=== PATIENT | male | born 1990 | race Caucasian/White ===

== ENCOUNTER 2020-02-16 10:06 | Outpatient (NON) | payer OTHER, SELFPAY ==
[2020-02-17 06:46] LABS: SARS-CoV-2 RNA PCR Negative
== END 2020-02-16 10:07 ==
PROVIDERS: PCP Family Medicine; Visit Provider Family Medicine
DX: Z20.828 Contact with and (suspected) exposure to other viral communicable diseases (principal)
CPT/HCPCS: 87635; C9803; U0003

== ENCOUNTER 2020-12-11 12:07 | Emergency (ER) | payer OTHER, SELFPAY ==
--- NOTE | ~2020-12-11 | XR_ITS ---
EXAMINATION: XR chest 2V DATE: 12/11/2020 12:50 INDICATION: Cough and fatigue TECHNIQUE: PA and lateral views of the chest were obtained. COMPARISON: Chest radiograph dated 06/08/17 FINDINGS: New patchy airspace opacities in the bilateral lower lung zones consistent with multifocal pneumonia. No pleural effusion or pneumothorax. The cardiomediastinal silhouette is normal. Visualized bones an d soft tissues are unremarkable. IMPRESSION: 1. Multifocal pneumonia in the bilateral lower lung zones. Reviewed, dictated and finalized at location A.
--- NOTE | 2020-12-11 12:27 | ED.URI ---
HPI - URI/Sore Throat General Chief Complaint: Upper Respiratory Infection Stated Complaint: Chills,Fatigue,Cough Time Seen by Provider: 12/11/20 12:27 Source: patient Mode of arrival: ambulatory Limitations: no limitations History of Present Illness HPI Narrative: Adilson Linares is a 29 yo male with no PMH who [facility] with 7 days worth of symptoms of diaphoresis feeling poorly, no energy, sleeping all the time, afebrile, generally ears hurt cough which is dry. Had a Covid test 5 days ago which is negative with and took a taper pack of steroids. Patient looks ill and although is not short of breath, is diaphoretic Related Data Home Medications Medication Instructions Recorded Confirmed azathioprine 50 mg tablet 150 mg PO DAILY tablet 09/21/19 01/23/20 mesalamine 1.2 gram tablet,delayed 4.8 gm PO DAILY 09/21/19 01/23/20 release Allergies Allergy/AdvReac Type Severity Reaction Status Date / Time No Known Allergies Allergy Verified 12/11/20 12:42 Review of Systems Review of Systems: CONSTITUTIONAL: Denies fever, chills, sweats. Fatigue EYES: Denies visual changes, redness, discharge. ENT: Denies rhinorrhea, congestion, sore throat, otalgia. CARDIOVASCULAR: Denies chest pain, palpitations, edema. Shortness of breath RESPIRATORY: Denies dyspnea, wheezing, cough GASTROINTESTINAL: Denies abdominal pain, nausea, vomiting, diarrhea. GENITOURINARY: Denies dysuria, hematuria, abnormal discharge SKIN: Denies rash or itching. NEUROLOGIC: Denies numbness, or focal weakness. PSYCHIATRIC: Denies anxiety or depression. PMFSH Past Medical History Medical History BMI 29.0-29.9,adult Factor V Leiden Major depressive disorder, single episode, unspecified Ulcerative colitis Family History Family History Other Diabetes mellitus Hypertension Social History Social History Smoking status: Never smoker Alcohol intake: current Comments My nurse note he is Exam Narrative: GENERAL: This is a well-nourished, well-developed patient, in moderate distress. Diaphoretic HEAD: normocephalic, atraumatic. EYES:. Sclera clear/white. Vision is grossly intact. EARS: External ears normal, auditory canals bilateral erythema and without drainage, TMs normal without perforation. Hearing grossly intact. NOSE: External nose normal without nasal discharge, nares without redness, some rhinorrhea THROAT: Mucous membranes moist, posterior pharynx erythema NECK: Neck supple, non-tender CARDIOVASCULAR: Tachycardic rate and rhythm without murmurs, gallops, or rubs. RESPIRATORY: Clear to auscultation. Breath sounds equal bilaterally. No wheezes, rales, or rhonchi. GASTROINTESTINAL: Abdomen soft, non-tender, SKIN: warm, intact with no suspicious lesions or rash, good texture and turgor. NEURO: awake, alert, and oriented to person, place and time. There were no obvious focal neurologic abnormalities. Steady gait EXTREMITIES: Normal range of motion. BACK: Nontender without deformity Course Course Emergency Course: Patient swab for flu Covid and strep Strep, flu negative Rapid Covid positive chest Xray was multifocal pneumonia bilateral lungs-no pneumonia, lateral basilar opacities, no pleural effusion Started on steroids 20 mg a day x5 days plus antihistamines plus cough medication plus Zyrtec, Zithromax, albuterol inhaler Patient to push fluids, quarantine, mother is agreed to check up on him Vital Signs Vital signs: Vital Signs Temperature 97.9 F 12/11/20 12:35 Pulse Rate 81 12/11/20 12:35 Respiratory Rate 18 12/11/20 12:35 Blood Pressure 111/77 12/11/20 12:35 Pulse Oximetry 99 12/11/20 12:35 Temperature 98.8 F 12/11/20 12:54 Pulse Rate 74 12/11/20 12:54 Respiratory Rate 20 12/11/20 12:54 Blood Pressure 99/71 L 12/11/20 12:54 Pul
[2020-12-11 12:35] VITALS: BP 111/77; PULSE 81; RESP 18; TEMP 36.6; O2SAT 99
[2020-12-11 12:54] VITALS: BP 99/71; PULSE 74; RESP 20; TEMP 37.1; O2SAT 100
== END 2020-12-11 13:33 | disposition home or self-care (01) ==
PROVIDERS: Emergency Provider Nurse Practitioner; PCP Family Medicine
DX: U07.1 COVID-19 (principal)
CPT/HCPCS: 71046; 87081; 87426; 87804; 87880; 99213; C9803; G0463

== ENCOUNTER 2021-02-13 10:27 | Outpatient (CLI) | payer OTHER, SELFPAY ==
[2021-02-13 11:06] LABS: Hematocrit 48.2 % (42.0-52.0); Hemoglobin 16.4 g/dL (14.0-18.0); Mean Corpuscular Hemoglobin 31.3 pg (26-34); Mean Platelet Volume 9.4 fl (7.4-10.4); Platelet Count Result 213 k/mm3 (150-375); Red Blood Count 5.24 M/mm3 (4.6-6.20); Red Cell Distribution Width 12.4 % (11.5-14.5); White Blood Count 4.9 K/mm3 (4.5-10.0)
== END 2021-02-13 10:28 | disposition home or self-care (01) ==
PROVIDERS: PCP Family Medicine; Visit Provider Internal Medicine Gastroenterology
DX: K51.80 Other ulcerative colitis without complications (principal)
CPT/HCPCS: 36415; 85027